=== PATIENT | female | born 1980 | race Caucasian/White ===

== ENCOUNTER → 2019-01-14 | Outpatient (CLI) | payer OTHER ==
[~2019-01-14] MED LIST: DULO60CA56 PO; HYDR-385 PO; KET10 PO; LOR5/325 PO; ONDA4TAB97 PO; TOPI-119 PO; TOPI-120 PO; TRAZ50TA34 PO
[2019-01-14 12:43] LABS: PLATELET COUNT, AUTOMATED 269 K/uL (150-450)
--- NOTE | 2019-01-14 13:13 | RADIOLOGY IMAGING REPORT ---
FACILITY: [facility] [place] PATIENT NAME: Sulma Singh : 1980 MR: [id number] V: [id number] EXAM DATE: ORDERING PHYSICIAN: CAMILA SHULTZ TECHNOLOGIST: Location: [facility] Patient: Sulma Singh : 1980 Visit/Account:[id number] Date of Sevice: 01/14/2019 CHEST PA LAT COMPARISONS: 2 view chest dated May 21, 2015 ADDITIONAL PERTINENT HISTORY: Acute bronchitis FINDINGS: Cardiomediastinal silhouette: Negative. Pulmonary vasculature: Negative. Lung suazo: Negative. Pleural spaces: Negative. Osseous structures: Negative. Surrounding soft tissues: Patient status post cholecystectomy. IMPRESSION: Normal views of the chest. Report Dictated By: Tha Cobos MD at 01/14/2019 1:07 PM Report E-Signed By: Tha Cobos MD at 01/14/2019 1:08 PM WSN:[id number]
== END ==
LOC: LAB 12:34
PROVIDERS: ATTEND Physician Assistant
DX: J20.9 Acute bronchitis, unspecified (principal)
CPT/HCPCS: 36415; 71046; 85025